=== PATIENT | male | born 1930 | race Caucasian/White ===

== ENCOUNTER 2016-08-13 13:39 | Emergency (ER) | payer OTHER ==
[~2016-08-13] VITALS: Ht 175.3 cm; Wt 74.5 kg
[2016-08-13 14:32] LABS: HEMATOCRIT 24.5 % (38.0-50.0); MCH 24.5 PG (29.0-34.0); MCHC 30.6 G/DL (30.0-36.0); MCV 80.1 FL (86-99); MEAN PLAT.VOLUME 9.3 uM^3 (9.0-12.4); PLATELET COUNT 347 K/uL (156-360); RBC DIS.WIDTH-CV 15.3 % (11.8-14.6); RBC DIS.WIDTH-SD 42.6 % (39-53); RED BLOOD COUNT 3.06 M/uL (4.00-5.50); WHITE BLOOD COUNT 6.3 K/uL (4.1-10.2)
[2016-08-13 15:04] LABS: ANION GAP 10 MEQ/L (2-14); CHLORIDE 103 MEQ/L (99-109); SAMPLE HEMOLYSIS CHECK 0; SAMPLE ICTERIC CHECK 0; SAMPLE LIPEMIA CHECK 0; SODIUM 137 MEQ/L (136-147)
[2016-08-13 15:09] LABS: TROP-I INTERPRETATION NEGATIVE; TROPONIN-I 0.01 ng/mL (0.0-0.30)
[2016-08-13 15:10] LABS: GFR ESTIMATE (CALCULATED) 38 mL/min/; GLUCOSE 106 mg/dL (70-99); UREA NITROGEN (BUN) 26 mg/dL (9-23)
[2016-08-13 16:54] VITALS: BP 145/68
[2016-08-14] MEDS ORDERED: PRESERVISION T1 EACH PO (10:46)
== END 2016-08-13 17:04 | disposition home or self-care (01) ==
LOC: EDBD 13:39 → EME 13:39
DX: D64.9 Anemia, unspecified (principal); K92.1 Melena; Z87.891 Personal history of nicotine dependence
CPT/HCPCS: 71020; 80048; 84484; 85027; 86850; 86900; 86901; 86920; 93005; 99281; 99284

== ENCOUNTER 2016-10-16 11:23 | Emergency (ER) | payer OTHER ==
[~2016-10-16] VITALS: Ht 175.3 cm; Wt 69.3 kg
[~2016-10-16 11:23] MED LIST: PRESERVISION T1 EACH PO
[2016-10-16 12:33] LABS: HEMATOCRIT 30.3 % (38.0-50.0); MCH 28.2 PG (29.0-34.0); MCV 88.1 FL (86-99); MEAN PLAT.VOLUME 10.7 uM^3 (9.0-12.4); PLATELET COUNT 230 K/uL (156-360); RBC DIS.WIDTH-SD 55.1 % (39-53); RED BLOOD COUNT 3.44 M/uL (4.00-5.50); WHITE BLOOD COUNT 5.4 K/uL (4.1-10.2)
[2016-10-16 12:42] LABS: CHLORIDE 104 mEq/L (99-109); SODIUM 137 mEq/L (136-147)
[2016-10-16 12:44] LABS: GLUCOSE 118 mg/dL (70-99)
[2016-10-16 12:45] LABS: ANION GAP 11 MEQ/L (2-14)
[2016-10-16 12:48] LABS: GFR ESTIMATE (CALCULATED) 47 mL/min/; UREA NITROGEN (BUN) 27 mg/dL (9-23)
[2016-10-16 13:28] LABS: TROP-I INTERPRETATION NEGATIVE; TROPONIN-I 0.01 ng/mL (0.0-0.30)
[2016-10-16 13:56] LABS: ADD MIUA? YES; BILIRUBIN SMALL; BLOOD NEGATIVE; COLOR AMBER ((YELLOW)); GLUCOSE (STRIP) NEGATIVE; KETONES 5; LEUKOCYTES MODERATE; NITRITE NEGATIVE; PROTEIN (STRIP) 30; SPECIFIC GRAVITY 1.025 (1.000-1.030)
[2016-10-16 14:12] LABS: EPITHELIAL CELLS 1+ /HPF; RED BLOOD CELLS 0-5 /HPF (0-5); WHITE BLOOD CELLS 15-20 /HPF (0-5)
[2016-10-16 14:13] LABS: BACTERIA 2+ /HPF; MUCUS NONE SEEN /LPF; UCUL ADDED? YES
[2016-10-16] MEDS ORDERED: LEVAQUIN250 MG PO (14:37)
[2016-10-16 14:49] VITALS: BP 125/59
== END 2016-10-16 15:06 | disposition home or self-care (01) ==
LOC: EME 11:23
DX: N39.0 Urinary tract infection, site not specified (principal); R41.0 Disorientation, unspecified; D64.9 Anemia, unspecified; N18.9 Chronic kidney disease, unspecified; Z87.440 Personal history of urinary (tract) infections; Z87.891 Personal history of nicotine dependence
CPT/HCPCS: 70450; 71020; 80048; 81003; 84484; 85027; 87086 GA; 93005; 99281; 99284

== ENCOUNTER → 2016-12-01 | Outpatient (CLI) | payer MEDICARE ==
[~2016-12-01] MED LIST changes: +IRON325 M1 PO; +LEVAQUIN250 MG PO
== END | disposition home or self-care (01) ==
LOC: CDC 11:32
DX: I49.3 Ventricular premature depolarization (principal); I49.9 Cardiac arrhythmia, unspecified; K63.9 Disease of intestine, unspecified
CPT/HCPCS: 93000

== ENCOUNTER 2016-12-04 06:37 | Inpatient (IN) | payer OTHER ==
[~2016-12-04] VITALS: Ht 182.9 cm; Wt 72.6 kg
[2016-12-04 07:33] VITALS: BP 164/68
[2016-12-04 07:44] LABS: ANION GAP 6 MEQ/L (2-14); CHLORIDE 104 MEQ/L (99-109); POTASSIUM 4.1 MEQ/L (3.7-5.4); SAMPLE HEMOLYSIS CHECK 0; SAMPLE ICTERIC CHECK 0; SAMPLE LIPEMIA CHECK 0; SODIUM 138 MEQ/L (136-147)
[2016-12-04 07:50] LABS: GFR ESTIMATE (CALCULATED) > 59 mL/min/; GLUCOSE 103 mg/dL (70-99); UREA NITROGEN (BUN) 14 mg/dL (9-23)
[2016-12-04 14:54] VITALS: BP 139/72
[2016-12-04 18:58] VITALS: BP 187/75
[2016-12-05 01:00] VITALS: BP 10/77; BP 102/77
[2016-12-05 04:00] VITALS: BP 123/66
[2016-12-05 06:15] LABS: EOSINOPHIL (%) 0 % (0-5); HEMATOCRIT 26.6 % (38.0-50.0); IMMATURE GRANULOCYTE (%) 0.5 % (0.0-0.7); IMMATURE GRANULOCYTE COUNT 0.1 K/uL; INSTRUMENT ABS NEUTROPHIL CT 8.8 K/uL; LYMPHOCYTE COUNT 1.3 K/uL (1.0-2.8); MCH 28.8 PG (29.0-34.0); MCV 90.2 FL (86-99); MEAN PLAT.VOLUME 10.3 uM^3 (9.0-12.4); MONOCYTE (%) 7.8 % (3-12); MONOCYTE COUNT 0.9 K/uL (0-0.8); NEUTROPHIL (%) 80.2 % (45-76); NEUTROPHIL COUNT 8.8 K/uL (1.8-6.4); PLATELET COUNT 224 K/uL (156-360); RBC DIS.WIDTH-CV 14.8 % (11.8-14.6); RBC DIS.WIDTH-SD 49.4 % (39-53); RED BLOOD COUNT 2.95 M/uL (4.00-5.50)
[2016-12-05 06:20] LABS: WHITE BLOOD COUNT 10.9 K/uL (4.1-10.2)
[2016-12-05 06:43] LABS: ALKALINE PHOSPHATASE 51 IU/L (3-129); ANION GAP 7 MEQ/L (2-14); CHLORIDE 105 MEQ/L (99-109); GFR ESTIMATE (CALCULATED) > 59 mL/min/; GLUCOSE 107 mg/dL (70-99); MAGNESIUM 2.3 mg/dl (1.3-2.7); POTASSIUM 4.5 MEQ/L (3.7-5.4); SAMPLE HEMOLYSIS CHECK 0; SAMPLE ICTERIC CHECK 0; SAMPLE LIPEMIA CHECK 0; SODIUM 137 MEQ/L (136-147); TOTAL BILIRUBIN 0.4 MG/DL (0.0-1.0); UREA NITROGEN (BUN) 16 mg/dL (9-23)
[2016-12-05 07:15] VITALS: BP 145/71
[2016-12-05 11:15] VITALS: BP 130/72
[2016-12-05 23:25] VITALS: BP 132/78
[2016-12-06 10:16] LABS: EOSINOPHIL (%) 0.8 % (0-5); EOSINOPHIL COUNT 0.1 K/uL (0-0.3); HEMATOCRIT 28.4 % (38.0-50.0); IMMATURE GRANULOCYTE (%) 0.6 % (0.0-0.7); IMMATURE GRANULOCYTE COUNT 0.1 K/uL; INSTRUMENT ABS NEUTROPHIL CT 5.5 K/uL; LYMPHOCYTE COUNT 1.6 K/uL (1.0-2.8); MCH 28.9 PG (29.0-34.0); MCHC 31.7 G/DL (30.0-36.0); MCV 91.3 FL (86-99); MONOCYTE (%) 7.1 % (3-12); MONOCYTE COUNT 0.6 K/uL (0-0.8); NEUTROPHIL (%) 70.7 % (45-76); NEUTROPHIL COUNT 5.5 K/uL (1.8-6.4); PLATELET COUNT 245 K/uL (156-360); RBC DIS.WIDTH-CV 14.9 % (11.8-14.6); RBC DIS.WIDTH-SD 49.8 % (39-53); RED BLOOD COUNT 3.11 M/uL (4.00-5.50); WHITE BLOOD COUNT 7.8 K/uL (4.1-10.2)
[2016-12-06 10:43] LABS: ALKALINE PHOSPHATASE 53 IU/L (3-129); ANION GAP 6 MEQ/L (2-14); CHLORIDE 104 MEQ/L (99-109); GFR ESTIMATE (CALCULATED) > 59 mL/min/; GLUCOSE 97 mg/dL (70-99); MAGNESIUM 2.2 mg/dl (1.3-2.7); POTASSIUM 4.2 MEQ/L (3.7-5.4); SAMPLE HEMOLYSIS CHECK 0; SAMPLE ICTERIC CHECK 0; SAMPLE LIPEMIA CHECK 0; SODIUM 137 MEQ/L (136-147); UREA NITROGEN (BUN) 12 mg/dL (9-23)
[2016-12-06 10:48] LABS: TOTAL BILIRUBIN 0.5 MG/DL (0.0-1.0)
[2016-12-06 23:17] VITALS: BP 128/72
[2016-12-07 06:30] LABS: EOSINOPHIL (%) 3.2 % (0-5); EOSINOPHIL COUNT 0.2 K/uL (0-0.3); HEMATOCRIT 27.2 % (38.0-50.0); IMMATURE GRANULOCYTE (%) 0.4 % (0.0-0.7); INSTRUMENT ABS NEUTROPHIL CT 3.2 K/uL; LYMPHOCYTE COUNT 1.5 K/uL (1.0-2.8); MCH 28.7 PG (29.0-34.0); MCV 89.8 FL (86-99); MEAN PLAT.VOLUME 10.3 uM^3 (9.0-12.4); MONOCYTE COUNT 0.4 K/uL (0-0.8); NEUTROPHIL COUNT 3.2 K/uL (1.8-6.4); PLATELET COUNT 232 K/uL (156-360); RBC DIS.WIDTH-CV 14.5 % (11.8-14.6); RBC DIS.WIDTH-SD 47.7 % (39-53); RED BLOOD COUNT 3.03 M/uL (4.00-5.50)
[2016-12-07 06:31] LABS: WHITE BLOOD COUNT 5.4 K/uL (4.1-10.2)
[2016-12-07 06:52] LABS: ALKALINE PHOSPHATASE 46 IU/L (3-129); ANION GAP 6 MEQ/L (2-14); CHLORIDE 105 MEQ/L (99-109); GFR ESTIMATE (CALCULATED) > 59 mL/min/; GLUCOSE 94 mg/dL (70-99); MAGNESIUM 2.1 mg/dl (1.3-2.7); POTASSIUM 3.9 MEQ/L (3.7-5.4); SAMPLE HEMOLYSIS CHECK 0; SAMPLE ICTERIC CHECK 0; SAMPLE LIPEMIA CHECK 0; SODIUM 137 MEQ/L (136-147); TOTAL BILIRUBIN 0.4 MG/DL (0.0-1.0); UREA NITROGEN (BUN) 9 mg/dL (9-23)
[2016-12-07 07:11] VITALS: BP 155/75
[2016-12-07 15:31] VITALS: BP 129/57
[2016-12-07 23:03] VITALS: BP 125/72
[2016-12-08 05:43] VITALS: BP 120/68
[2016-12-08 07:05] VITALS: BP 183/86
[2016-12-08 11:04] VITALS: BP 181/83
[2016-12-08 15:10] VITALS: BP 182/85
[2016-12-08 19:22] VITALS: BP 130/83
[2016-12-08 22:54] VITALS: BP 136/68
[2016-12-09 07:03] VITALS: BP 144/63
[2016-12-09 15:23] VITALS: BP 137/63
[2016-12-09 20:20] VITALS: BP 143/65
[2016-12-09 23:28] VITALS: BP 135/73
[2016-12-10 03:20] VITALS: BP 140/59
[2016-12-10 06:56] VITALS: BP 171/82
[2016-12-10 15:13] VITALS: BP 119/55
== END 2016-12-10 18:35 | DRG 330 ==
LOC: 2SOUTH 06:37 → 5EAST 06:37 → 2SOUTH 09:03 → 5EAST 14:39 → 2SOUTH 15:38 → 5EAST 12-10 18:35
PROVIDERS: Surgery
DX: C18.0 Malignant neoplasm of cecum (principal); G30.9 Alzheimer's disease, unspecified; F02.81 Dementia in other diseases classified elsewhere, unspecified severity, with behavioral disturbance; I10 Essential (primary) hypertension; D64.9 Anemia, unspecified; Z75.1 Person awaiting admission to adequate facility elsewhere; Z87.891 Personal history of nicotine dependence; Z88.7 Allergy status to serum and vaccine
CPT/HCPCS: 36415; 80048; 80053; 81003; 82378 GA; 83735; 84100; 85025; 86900; 86901; 86920; 88309; 93000; J0330; J1100; J1170; J1650; J2060; J2405; J3010; J7120; P9016; S0030